=== PATIENT | male | born 1975 | race Two or more races ===

== ENCOUNTER 2022-09-10 13:37 | Outpatient (REF) | payer MEDICAID, SELFPAY ==
--- NOTE | ~2022-09-10 | MR_ITS ---
EXAMINATION: MR LUMBAR SPINE WITHOUT CONTRAST CLINICAL INFORMATION: 47-year-old with low back pain and 8 years of pain radiating down the right side. COMPARISON: None TECHNIQUE: MRI of the lumbar spine was obtained using routine sequences without contrast. FINDINGS: CORONAL ALIGNMENT: Normal. SAGITTAL ALIGNMENT: Normal. LUMBOSACRAL JUNCTION: Transitional lumbosacral anatomy with lowest lumbar-like segment labeled as S1, which appears partially lumbarized with a transitional S1-S2 intervertebral disc. VERTEBRAL BODIES: Vertebral body heights are well maintained. DISC SPACES AND ENDPLATES: The intervertebral disc space heights are well maintained. Mild degrees of disc desiccation are noted between L2-L3 and L5-S1 inclusive. Mild paravertebral spondylosis at L4-L5 and L5-S1. Tiny Schmorl's node along the inferior endplate of L4 noted. SPINAL CANAL: No abnormal developmental findings. BONE MARROW: Bone marrow edema is noted in the left L5 and S1 pedicles, with subchondral marrow edema on both sides of the left L5-S1 facet joint, likely reactive secondary to facet arthropathy. Cannot exclude stress reactions in the left L5 and S1 pedicles. Minor marrow edema in the right L5 pedicle as well which is nonspecific. There is marrow edema within the L5 transverse process as well which is suggestive of a stress reaction. No suspicious marrow-replacing process. Mild marrow edema noted in the pars interarticularis bilaterally at L5 which could also be reflective of stress reactions. CONUS MEDULLARIS: Terminates at L2. Morphology and signal is normal. INTRADURAL NERVE ROOTS: Within normal limits. L5-S1: Diffuse disc bulging is noted with mild right lateral annular fissuring, with slight flattening of the ventral dural sac. There is moderate left-sided and [id number] right-sided facet arthropathy, with bilateral facet joint effusions and probable reactive inflammatory changes at the left facet joint with some adjacent periarticular soft tissue edema and a small synovial cyst along the posterior margin of the left facet joint. No significant spinal canal stenosis. There is moderate bilateral neural foraminal stenosis, with disc bulging abutting the exiting L5 nerve roots bilaterally. L4-L5: Disc bulging is noted with a superimposed right-sided foraminal/extraforaminal disc herniation impinging on the exiting right L4 nerve root. Disc bulging also impinges on the exiting left L4 nerve root. Mild facet arthrosis is noted bilaterally without significant canal stenosis. [id number] right and moderate left-sided neural foraminal stenosis noted. L3-L4: Small extraforaminal/foraminal disc protrusion noted on the left without neural impingement. Mild ligamentum flavum thickening noted without significant canal stenosis. Minor foraminal narrowing noted on the left. L2-L3: Normal disc contour. No facet arthrosis, canal or neural foraminal stenosis. L1-L2: Normal disc contour. No facet arthrosis, canal or neural foraminal stenosis. PARASPINAL/RETROPERITONEAL: The paravertebral soft tissues appear grossly unremarkable. MR/MR lumbar spine wo con IMPRESSION: 1. Disc bulging at L5-S1 with annular fissuring on the right, with bilateral facet arthropathy and moderate bilateral neural foraminal stenosis with impingement on the exiting L5 nerve roots bilaterally. 2. Disc bulging at L4-L5 and right-sided foraminal/extraforaminal disc herniation at this level with mild facet arthrosis, with [id number] right and moderate left-sided neural foraminal stenosis, with impingement on the L4 nerve roots, right more than left. 3. Marrow edema in the posterior elements of L5, as discussed above and within the left S1 pedicle and L5 spinous process which may reflect stress reactions. Active inflammatory changes at the left L5-S1 facet joint are also suspected.
== END 2022-09-10 13:38 | disposition home or self-care (01) ==
LOC: HO.MRI 13:37
PROVIDERS: PCP Internal Medicine; Visit Provider General Practice
DX: M62.830 Muscle spasm of back (principal)
CPT/HCPCS: 72148

== ENCOUNTER 2024-02-23 09:53 | Outpatient (REF) | payer MEDICAID, SELFPAY ==
[2024-02-23 10:58] LABS: MANUAL DIFF FLAG NO
[2024-02-23 11:17] LABS: Basophils Absolute Auto 0.1 X10*3/uL (0.0-0.2); Basophils Percent Auto 0.4 % (0-2); Eosinophils Percent Auto 0.2 % (0-4); Hematocrit 44.6 % (42.0-52.0); Hemoglobin 14.4 g/dl (14.0-18.0); Imm Gran Abs Auto 0.05 X10*3/uL (0.00-0.03); Imm Gran Pct Auto 0.4 % (0.0-0.4); Lymphocytes Percent Auto 8.3 % (20-40); Mean Corpuscular HGB Conc 32.3 g/dl (31.0-36.0); Mean Corpuscular Hemoglobin 32.1 pg (27.0-33.0); Mean Corpuscular Volume 99.6 fL (80.0-98.0); Mean Platelet Volume 9.7 fL (9.4-12.4); Neutrophils Absolute Auto 9.9 x10*3/uL (2.0-8.3); Neutrophils Percent Auto 82.7 % (45-73); Platelet Count 443 X10*3/uL (160-400); Red Blood Count 4.48 X10*6/uL (4.60-5.80); Red Cell Distribution Width 12.2 % (11.0-16.0)
[2024-02-23 11:39] LABS: Alanine Aminotransferase 21 U/L (0-40); Alkaline Phosphatase 65 U/L (39-117); Anion Gap 12 (12-20); Aspartate Amino Transferase 20 U/L (5-37); Bilirubin Direct 0.2 mg/dL (0.0-0.5); Bilirubin Total 0.4 mg/dL (0.0-1.0); Blood Urea Nitrogen 10 mg/dL (9-16); Calcium 9.8 mg/dL (8.4-10.2); Carbon Dioxide 29 mmol/L (22-29); Chloride 103 mmol/L (96-108); Cholesterol 136 mg/dL (<200); Estimated Glomerular Filt Rate > 60; Glucose Random 128 mg/dL (60-115); HDL Cholesterol 60 mg/dL (>40); LDL Cholesterol Calculated 67 mg/dL (<100); Potassium 4.6 mmol/L (3.3-5.1); Sodium 139 mmol/L (135-145); Total Protein 7.9 g/dL (6.5-8.0); Triglycerides 49 mg/dL (<150)
[2024-02-23 11:56] LABS: Estimated Average Glucose 114 mg/dL; Hemoglobin A1c % 5.6 % (<6.0)
[2024-02-23 12:08] LABS: TSH reflex Free T4 1.28 uIU/mL (0.32-4.0); Vitamin D 25-OH Total 19.5 ng/mL (>30)
[2024-02-23 12:33] LABS: Reflex LDLD? No
[2024-02-23 15:05] LABS: HIV AB/AG Nonreactive (Nonreactive); HIV Num 1 0.07 S/CO (0.00-0.99); ~Hepatitis C Antibody Nonreactive (Nonreactive)
== END 2024-02-23 09:54 | disposition home or self-care (01) ==
LOC: HO.HHCL 09:53
PROVIDERS: Visit Provider Internal Medicine
DX: I10 Essential (primary) hypertension (principal); E11.9 Type 2 diabetes mellitus without complications; Z79.4 Long term (current) use of insulin; F39 Unspecified mood [affective] disorder
CPT/HCPCS: 36415; 80053; 80061; 82248; 82306; 83036; 84443; 85025; 86803; 87389

== ENCOUNTER 2025-04-25 09:14 | Outpatient (AMB) | payer MEDICAID, SELFPAY ==
--- NOTE | 2025-04-25 09:17 | A.OFFVIS_ITS ---
Intake Visit Reasons: hematoma (R) thigh Intake Note: Patient is seen in office for evaluation of a hematoma of the right thigh. Pt c[place]o: [place] and landed side ways about 2 months ago, at the time had a large hematoma, currently is resolved however is still painful when sleepin on it [employer] Required: No Accompanied by: Self / Same As Patient Allergies No Known Allergies Allergy (Unverified 04/25/25 09:24) Medication List - Last Reconciled 04/25/25 by Malikc Hay MD acetaminophen 500 mg PO Q6H PRN aspirin 1 tab PO DAILY atorvastatin (Lipitor) 40 mg PO BEDTIME cholecalciferol (vitamin D3) 50 mcg PO DAILY diclofenac sodium 1% 2 grams topical QID ibuprofen 600 mg PO Q6H PRN lisinopril 20 mg PO QAM quetiapine 300 mg PO BEDTIME HPI Comments Details: 50-year-old male patient presenting for evaluation of a right upper thigh hematoma. He reports falling in the park approximately 2 months ago landing on his right hip. He subsequently developed a large hematoma which was quite painful at the time. Since this time he did note ecchymosis extending down his leg which has now resolved. The original lump has decreased significantly. He occasionally has some discomfort when laying on his right side but generally feels much improved. He is able to ambulate without any difficulties. [facility] Surgical History History of amputation of right thumb Social History Alcohol intake: current Patient Tobacco Use Status: Current everyday Tobacco user Review of Systems Const All systems reviewed & are unremarkable except as noted in HPI and below Physical Exam Const General: cooperative and no acute distress Nutritional Appearance: well nourished Orientation/consciousness: patient oriented x3 Limitations: no limitations HEENT Head: Yes normocephalic and Yes atraumatic Ears: hearing grossly normal bilaterally Resp Effort & Inspection: normal respiratory effort, no audible wheezes, no cough and no respiratory distress Cardio Jugular venous distension: no JVD GI Inspection: Yes normal to inspection Skin Other: Warm, dry, no rash Neuro General: patient oriented x3 Extrem Other: Right lateral upper thigh with no palpable mass, skin change, tenderness noted. Normal range of motion. Ambulation is normal as well without apparent weakness. General: Yes no clubbing, cyanosis or edema Upper/lower leg/hip images: 2 1. Site of prior hematoma right upper lateral thigh Assessment & Plan Assessment & Plan (1) Hematoma: Code(s): T14.8XXA - Other injury of unspecified body region, initial encounter Category: Medical Plan 50-year-old male patient presenting for follow-up exam regarding a hematoma of the right lateral thigh. This occurred approximately 2 months ago after a fall. For the most part his symptoms have resolved and he has only minimal tenderness when laying on the right side. Examination reveals no definite residual hematoma at the site of injury. Muscle strength is normal as well. He should follow up as needed. Coding Level of Care Code New Pt Level 4 (02783) Diagnoses Hematoma T14.8XXA
--- OUTSIDE RECORDS SUMMARY | 2025-04-25 10:08 | XMS_ITS | Clinical Summary ---
Author Organization [employer] Address [address] [place] [address] [address] [place] [address] Care Team Providers Care Traffic Rate Computer Name Role Phone Sammi Wolf MD Primary Care Provide r [facility] Unavailable Unavailable Allergies No known active allergies Medications * This document contains information received from the source organization and may not represent a complete record from that organization. Blood Pressure kit Active Lancets 28G misc Act eusebia cholecalciferol (Vitamin D-3) 50 MCG (1999) capsuleIndication s:Vitamin D insufficiency Take 1 capsule (50 mcg) by mouth in the morning. 90 capsule 1 08/13/20 22 Active Mapap 500 MG capsuleIndication s:Lumbar paraspinal muscle spasm TAKE 2 CAPSULES BY MOUTH EVERY 6 HOURS NEEDED FOR MILD PAIN 90 capsule 1 02/18/20 23 Active Diclofenac Sodium 1 % gelIndications:Dania mbar paraspinal muscle spasm APPLY 1 INCH TOPICALLY TWICE DAILY IN THE MORNING AND AT BEDTIME NEEDED FOR PAIN 100 g 1 03/27/20 23 Active UltiCare Mini Pen [place] 31G X 6 MM [facility] USE DAILY FOR INSULIN INJECTION 100 each 4 05/05/20 23 Active Jardiance 25 MGIndications:Typ e 2 diabetes mellitus treated with insulin (CMS/HCC) TAKE 1 TABLET BY MOUTH EVERY MORNING 90 tablet 1 05/27/20 23 Active metFORMIN XR (Glucophage-XR) 500 MG 24 hr tabletIndications :Type 2 diabetes mellitus without complication, with long-term current use of insulin (CMS/HCC) TAKE 2 TABLETS BY MOUTH TWICE DAILY IN THE MORNING AND IN THE EVENING WITH MEALS 180 tablet 1 09/22/19 24 Active QUEtiapine (SEROquel) 300 MG tablet Take 1 tablet (300 mg) by mouth at bedtime. 90 tablet 3 01/21/20 24 Active insulin glargine (Lantus SoloStar) 100 UNIT/ML penIndications:Ty pe 2 diabetes mellitus treated with insulin ([facility]) INJECT 35 UNITS SUBCUTANEOUSLY EVERY EVENING 15 mL 1 02/08/20 24 Active sildenafil (Viagra) 25 MG tabletIndications :Erectile dysfunction, unspecified erectile dysfunction type Take 1 tablet (25 mg) by mouth if needed each day for erectile dysfunction. 10 tablet 2 02/23/20 24 Active atorvastatin (Lipitor) 40 MG tablet TAKE 1 TABLET BY MOUTH EVERY DAY AT BEDTIME 90 tablet 3 05/27/20 24 Active lisinopril 20 MG tabletIndications :Primary hypertension TAKE 1 TABLET BY MOUTH EVERY DAY IN THE MORNING 90 tablet 3 12/16/19 25 Active Aspirin Low Dose 81 MG chewable tabletIndications :Type 2 diabetes mellitus without complication, with long-term current use of insulin ([facility]) CHEW AND SWALLOW 1 TABLET BY MOUTH EVERY DAY 90 tablet 3 12/16/19 25 Active Active Problems Problem Noted Date Diagnosed Date Erectile dysfunction 02/23/2024 Assessment & Plan (02/23/2024 12:34 PM EDT): Counseling done I will start him on sildenafil 25mg Right elbow pain 01/01/2023 Assessment & Plan (01/01/2023 3:04 PM EDT): Continue to follow with pain management Chronic bilateral low back pain with bilateral s ciatica 01/01/2023 Depression with anxiety 01/01/2023 Assessment & Plan (02/23/2024 12:35 PM EDT): C/w psychiatrist and therapist Assessment & Plan (03/06/2023 1:53 PM EDT): Assessment: Patient with lack of motivation, isolation, depressed mood, trouble falling sleep, poor appetite, feeling tired/low energy, feeling useless, difficulties concentrating, and SI 1-2 times a week (thoughts of hanging himself to stop the irritability). He denies HI. He also reports feeling anxious, not being able to stop constant worrying, restlessness, irritability and feeling as something awful might happen. Presentation in the context of his finger being amputated two years ago as well as his uncontrolled medical issues (e.g. diabetes, high blood pressure). Patient will benefit from an OP therapy referral. Patient is already connected with [facility] for psychopharmacology. At this time Radha Nj meets criteria for Visit Diagnoses: Problem List Items Addressed This Visit Other Depression with anxiety Patient ready to address current needs Yes Strengths include openness to additional help PLAN: 1. Follow up with [facility]: Not recommended for follow-up 2. Patient goal is to decrease depressive and anxiety symptoms. 3. Behavioral Recommendations a. Patient will begin taking medication as prescribed b. Patient will engage in OP therapy once it is established c. Patient will utilize coping techniques learned d. Patient may request to speak with a [facility] during next PCP visit, if needed Colon cancer screening 01/01/2023 Mood disorder 10/06/2022 Assessment & Plan (01/21/2024 3:17 PM EDT): Presented with mood swings: Some days down and depressed, other days with excessive energy and can't sit still. Irritability. Mood congruent hallucinations: name called, voices talking; lights flashing. He is doing much better with improved sleep; hallucinations controlled. He will continue Seroquel 300 mg at bedtime. Follow up with therapist as usual. Since this provider will be retiring, patient will be referred to new psychiatric prescriber. Explained to the patient that new provider works with [facility], so calls would be coming from there. He gives verbal permission to share information with new provider. Any issues or concerns, he should contact [facility]. All his questions were answered, and I have wished him well. He agrees with the plan. Assessment & Plan (11/25/2023 9:59 AM EDT): Patient still struggles with mood disorder but is being follow closely by therapist and psychiatrist Assessment & Plan (11/17/2023 10:36 AM EDT): Presented with mood swings: Some days down and depressed, other days with excessive energy and can't sit still. Irritability. Mood congruent hallucinations: name called, voices talking; lights flashing. He is doing better with improved sleep; hallucinations improved but not extinguished. He was supposed to increase to Seroquel 150 mg at bedtime, but has increased to Seroquel 200 mg at bedtime. At this time will increase to Seroquel 300 mg at bedtime. Cautioned about possible daytime sedation. Praised for decreasing MJ consumption. He has started outpatient counseling. Today 11/17/2023 pt was advised that this provider would be retiring and suggest he speak with therapist about possible referral to agency psychiatric prescriber. Meanwhile F/U with me in 2 months. He agrees with the plan. F/U with me in 2 months. he agrees with the plan. Assessment & Plan (05/04/2023 9:33 AM EDT): Presented with mood swings: Some days down and depressed, other days with excessive energy and can't sit still. Irritability. Mood congruent hallucinations: Hears name called, voices talking; Sees lights flashing. Doing better than baseline: improved sleep; hallucinations improved but not extinguished. Has not increased to Seroquel 150 mg at bedtime as advised, will do that now. Recommend decreasing MJ consumption. I will make a new referral for counseling. F/U with me in 2 months. he agrees with the plan. Assessment & Plan (03/02/2023 9:40 AM EDT): Presented with mood swings: Some days down and depressed, other days with excessive energy and can't sit still. Irritability. Mood congruent hallucinations: Hears name called, voices talking; Sees lights flashing. Doing better: improved sleep; hallucinations improved but not extinguished. Will increase to Seroquel 150 mg at bedtime. Will request [facility] Clinician contact pt for f/u. F/U with me in 2 months. he agrees with the plan. Assessment & Plan (01/01/2023 3:02 PM EDT): Patient follow by [facility] currently does not have a therapist Assessment & Plan (10/06/2022 11:55 AM EST): Presented with mood swings: Some days down and depressed, other days with excessive energy and can't sit still. Irritability. Mood congruent hallucinations: Hears name called, voices talking; Sees lights flashing. Sleeping better. Hallucinations improved but not extinguished. Mood is still not stable. Will increase to Seroquel 50 mg 1.5 tab at bedtime for a few weeks, then may increase to 2 tabs at bedtime. F/U with me in 6 weeks. he agrees with the plan. Lumbar paraspinal muscle spasm 07/28/2022 Assessment & Plan (07/28/2022 3:14 PM EST): Counseled to apply heat to affected area and diclofenac gel bid x 2w Take tylenol 500mg tid x 2w then prn only Refer to PT Recommended acupuncture Order Xray of spine and fu w PCP in 3m He declined Influenza vax today. Pain in finger 07/25/2022 Hypertensive disorder 01/30/2017 Assessment & Plan (02/23/2024 12:33 PM EDT): - Aerobic exercise to reduce BP. Initial goal of 30 min walk 3-5x/week. Increase as tolerated. - low-sodium diet (goal: <2g/day) and heart healthy diet such as DASH to reduce BP and prevent ASCVD. - Home BP monitoring 1-2 x day with goal of <140/90. - Seek immediate medical attention for chest pain, palpitations, SOB, syncope, or sudden changes in mental status. - Do not change or discontinue current prescriptions without first consulting health care provider Assessment & Plan (11/25/2023 9:58 AM EDT): - Aerobic exercise to reduce BP. Initial goal of 30 min walk 3-5x/week. Increase as tolerated. - low-sodium diet (goal: <2g/day) and heart healthy diet such as DASH to reduce BP and prevent ASCVD. - Home BP monitoring 1-2 x day with goal of <140/90. - Seek immediate medical attention for chest pain, palpitations, SOB, syncope, or sudden changes in mental status. - Do not change or discontinue current prescriptions without first consulting health care provider Assessment & Plan (01/01/2023 3:04 PM EDT): - Aerobic exercise to reduce BP. Initial goal of 30 min walk 3-5x/week. Increase as tolerated. - low-sodium diet (goal: <2g/day) and heart healthy diet such as DASH to reduce BP and prevent ASCVD. - Home BP monitoring 1-2 x day with goal of <140/90. - Seek immediate medical attention for chest pain, palpitations, SOB, syncope, or sudden changes in mental status. - Do not change or discontinue current prescriptions without first consulting health care provider Resolved Problems Problem Noted Date Diagnosed Date Resolved Date Hordeolum externum of upper eyelid 07/25/2022 06/20/2024 Mixed anxiety and depressive disorder 07/25/2022 10/06/2022 Type 2 diabetes mellitus without complication 10/29/19 13 06/20/2024 Assessment & Plan (02/23/2024 12:35 PM EDT): Diabetes is: controlled - Lab Results Component Value Date HGBA1C 5.6 02/23/2024 HGBA1C 5.7 11/25/2023 HGBA1C 6.1 (A) 01/01/2023 - Lab Results Component Value Date MICROALBUR 52.3 08/21/2021 CREATININE 0.83 02/23/2024 -Changes: none - Diabetic eye exam:up to date - Diabetic foot exam:pending - Continue lifestyle modifications - Continue current medications - Follow up: 3 months Assessment & Plan (11/25/2023 9:59 AM EDT): Diabetes is: controlled - Lab Results Component Value Date HGBA1C 5.7 11/25/2023 HGBA1C 6.1 (A) 01/01/2023 HGBA1C 8.2 (H) 08/21/2021 - Lab Results Component Value Date MICROALBUR 52.3 08/21/2021 -Changes: I will go down on his lantus to 10 U at bed time plan is to discontinue if A1c continues to be this low - Diabetic eye exam:referral today - Diabetic foot exam:pending - Continue lifestyle modifications - Continue current medications - Follow up: 3 months Assessment & Plan (01/01/2023 3:00 PM EDT): - Lab Results Component Value Date HGBA1C 6.1 (A) 01/01/2023 HGBA1C 8.2 (H) 08/21/2021 - Lab Results Component Value Date MICROALBUR 52.3 08/21/2021 - Diabetic eye exam: - Diabetic foot exam: - Continue lifestyle modifications - Continue current medications - Encounters Date Type Department Care Team Description 03/21/[address] [phone] Sammi Wolf MD Appointment Request 03/09/[address] [phone] Sammi Wolf MD requesting call back 02/28/2025 3:45 PM EDT Office Visit [address] [phone] Name, MD Catracho Hematoma of right thigh, initial encounter (Primary Dx) 02/28/2025 Travel 02/28/[address] [phone] Sammi Wolf MD Nurse Triage from Last 3 Months Immunizations Immunization Administration Dates Next Due Influenza injectable quadriv alent preservative free 08/21/2021 Influenza, IIV3, injectable 07/12/2010 Pfizer Covid-19 Vaccine 12+ 08/21/2021,,01/01/2021 Pneumococcal Polysaccharide PPSV23 09/02/2000 TD (adult), 2 Lf tetanus tox oid, preservative free, adsorbed 06/24/2003 Tdap 08/21/2021 Social History Tobacco Use Types Packs/Day Years Used Date Smoking Tobacco: Every Day Cigarettes Passive Smoke Exposure: Current Smokeless Tobacco: Never Tobacco Cessation:Ready to Q uit: Not Asked; Counseling Given: Not Answered Alcohol Use Standard Drinks/Week Comments Yes 0 (1 standard drink = 0.6 oz pur e alcohol) Socially Depression Answer Date Recorded Patient Health Questionnaire-9 Score 7 01/21/2024 Patient Health Questionnaire-9 Score 7 01/21/2024 Last PHQ-9: Questionnaire Data Not on file 0 01/21/2024 Housing Stability Answer Date Recorded What is your housing situation today? I do not have housing (Staying with others, in a hotel, in a long-term, living outside on the street, on a beach, in a car, or in a park 02/12/[address] you li ve. Do you have problems with any of the following? None of the above 02/12/2024 Food Insecurity Answer Date Recorded Within the past 12 months, y ou worried that your food would run out before you got money to buy more: Never True 02/12/2024 Within the past 12 months,th e food you bought just didn't last and you didn't have enough money to get more: Never True Transportation Answer Date Recorded In the past 12 months, has l ack of transportation kept you from medical appts, meetings, work or from getting things needed for daily living? Yes, it has kept me from non-medical meetings, work, or getting things that I need 02/12/2024 Utilities Answer Date Recorded In the past 12 months, has t he electric, gas, oil or water company threatened to shut off services in your home? No 02/12/2024 Depression Answer Date Recorded Patient Health Questionnaire-2 Score 2 01/21/2024 Internet Access Answer Date Recorded Internet Access Q1 Yes 04/25/2024 Internet Access Q2 Not on file 04/25/2024 Sex and Gender Information Value Date Recorded Sex Assigned at Male 06/23/2022 10:16 AM EDT Legal Sex Male 10:16 AM EDT Gender Identity Choose not to disclose 10:16 AM EDT Sexual Orientation Choose not to disclose 2021 10:16 AM EDT Last Filed Vital Signs Vital Sign Reading Time Taken Comments Blood Pressure 118/72 02/28/2025 3:42 PM EDT Pulse 104 02/28/2025 3:42 PM EDT Temperature 36.7 C (98 F) 02/28/2025 3:42 PM EDT Respiratory Rate 18 02/28/2025 3:42 PM EDT Oxygen Saturation 96% 02/28/2025 3:42 PM EDT Inhaled Oxygen Concentration - - Weight 75.6 kg (166 lb 9.6 oz) 02/28/2025 3:42 P M EDT Height 180.3 cm (5' 11 ) 02/28/2025 3:42 PM EDT Body Mass Index 23.24 02/28/2025 3:42 PM EDT Plan of Treatment Upcoming Encounters Date Type Department Care Team (Late st Contact Info) Description 05/23/2025 10:45 AM EDT Office Visit [facility] [address] [place] [address] Sammi Wolf MD [address] [place] [address] 07/18/2025 10:00 AM EST Office Visit [facility] [address] [place], [place] [phone] Karen Boles, OD [address] [place], [place] [phone] Health Maintenance Due Date Last Done Comments CT Colonography 1976 Colonoscopy 1976 FIT 1976 FOBT 1976 Sigmoidoscopy 1976 Disability Screening 1976 Diabetes: Foot Exam 1986 Alcohol/Substance Use Screening 1988 Family Planning (PISQ) 1991 Hepatitis B Vaccines (1 of 3 - 19+ 3-dose series) 1995 Pneumococcal Vaccine: Pediatrics (0 to 5 Years) and At-Risk Patients (6 to 49) Years (2 of 2 - PCV) 09/02/2001 09/02/2000 Diabetes: Urine Protein Screening 08/21/2022 08/21/2021 Diabetes: Hemoglobin A1C 08/25/20242 024, 11/25/2023, 01/01/2023, Additional history exists Depression Screening 01/20/2025 01/21/2024, 01/21/20 24 SDOH Screening 02/11/2025 02/12/2024 Lipid Panel 02/22/2025 02/23/2024, 08/21/2021 COVID-19 Vaccine ( season) 2025 08/21/2021, 01/23/2021, 01/01/2021 Influenza Vaccine (#1) 2025 08/21/2021, 2009 Eye Exam 06/20/2025 06/20/2024, 1003/2024, 06/20/2024, Additional history exists Tobacco Screening 02/28/2026 02/28/2025 Zoster Vaccines (1 of 2) 2026 Colorectal Cancer Screening 12/23/2026 FIT DNA/Cologuard 12/23/2026 12/24/2023 DTaP/Tdap/Td Vaccines (2 - Td or Tdap) 08/21/2031 08/21/2021, 06/24/2003 RSV Patients and Patients Aged 60 years or older (1 - 1-dose 75+ series) 2051 HIV Screening Completed 02/23/2024 Hepatitis C Screening Completed 02/23/2024 HIB Vaccines Aged Out No longer eligi ble based on patient's age to complete this topic HPV Vaccines Aged Out No longer eligi ble based on patient's age to complete this topic Hepatitis A Vaccines Aged Out No long er eligible based on patient's age to complete this topic IPV Vaccines Aged Out No longer eligi ble based on patient's age to complete this topic Meningococcal B Vaccine Aged Out No l onger eligible based on patient's age to complete this topic Meningococcal Vaccine Aged Out No jamil lucita eligible based on patient's age to complete this topic RSV under 20 months Aged Out No longe r eligible based on patient's age to complete this topic Rotavirus Vaccines Aged Out No longer eligible based on patient's age to complete this topic Procedures Procedure Name Priority Date/Time Associated Diagnosis Comments HEPATITIS C AB W/REFL TO HCV RNA, QN, PCR Routine 02/23/2024 9:57 AM EDT Primary hypertension HIV 1/2 ANTIGEN/ANTIBODY, FOURTH GENERATION W/RFL Routine 02/23/2024 9:57 AM EDT Primary hypertension HEMOGLOBIN A1C Routine 02/23/2024 9:57 AM EDT Type 2 diabetes mellitus without complication, with long-term current use of insulin ([facility]/HCC) LIPID PANEL, STANDARD Routine 02/23/2024 9:57 AM EDT Primary hypertension LAB COLOGUARD COLON CANCER SCREEN Routine 12/24/2023 8:20 AM EDT Colon cancer screening ALBUMIN, RANDOM URINE W/CREATININE Routine 08/21/2021 3:25 PM EST from Last 3 Months or Most Recently Relevant to Health Maintenance Results * Hepatitis C Antibody with Reflex to HCV, RNA, Quantitative, Real-Time PCR (02/23/2024 9:57 AM EDT) Pathologist [facility] Hepatitis C Antibody Nonreactive Nonreactive [facility] Comment:Antibodies to HCV no t detected; does not exclude early acuteHCV infection. Blood Venous blood specimen / Unknown 02/23/2024 9:57 AM EDT 02/23/2024 10:58 AM EDT Sammi Sheffield MD LAB BLOOD ORDERABLES Final Result [facility] [address] [place] [phone] * HIV-1/2 Antigen and Antibodies, Fourth Generation, with Reflexes (02/23/2024 9:57 AM EDT) [facility] HIV AB/AG Nonreactive Nonreactive [facility] Comment:HIV-1 p24 Ag and/or HIV-1/HIV-2 Ab not detected.A test result that is nonreactive does not exclude thepossibility of exposure to or infection with HIV-1 and/orHIV-2. Nonreactive results in this assay for individualswith prior exposure to HIV-1 and/or HIV-2 may be due toantigen and antibody levels that are below the limit ofdetection of this assay.The [employer]sell HIV Ag/Ab Combo assay result andsupplemental assay results should be interpreted inconjunction with the patient's clinical presentation,history and other laboratory results. If the results areinconsistent with clinical evidence, additional testing issuggested to confirm the result. Blood Venous blood specimen / Unknown 02/23/2024 9:57 AM EDT 02/23/2024 10:58 AM EDT us Sammi Sheffield MD LAB BLOOD ORDERABLES Final Result Performing Organization Address City/Special Care [facility]/ZIP Co de Phone Number [facility] [address] [place] [phone] * Hemoglobin A1c (02/23/2024 9:57 AM EDT) Hemoglobin A1c 5.6 <6.0 % [facility] Comment:Hemoglobin A1C Refer ence Range Adults: 4.8 - 6.0 % Non diabetic: < 6.0 % Goal: < 7.0 %Additional Action Suggested: > 8.0 %Note: Hemoglobin A1c results are invalid for patients with abnormal amounts of HbF. Blood transfusions may impact the HbA1c concentration in the patient sample. Estimated Average Glucose 114 mg/dL [facility] Comment:eAG = Estimated ave rage glucose which is %A1C expressed asaverage glucose, using the formula of the I6S-YtmbvroWaezccn Glucose study (ADAG), Diabetes Care, Vol.31,#8,Mar. 2007 Blood Venous blood specimen / Unknown 02/23/2024 9:57 AM EDT 02/23/2024 10:56 AM EDT us Sammi Sheffield MD LAB BLOOD ORDERABLES Final Result Performing Organization Address City/[facility] Care [facility]/ZIP Co de Phone Number [facility] [address] [place] [phone] * Lipid Panel, Standard (02/23/2024 9:57 AM EDT) Triglycerides 49 <150 mg/dL [facility] Comment:Desirable Triglyceri de: less than 150 mg/dLBorderline High Triglyceride 150-199 mg/dLHigh Triglyceride: 200-499 mg/dLVery High Triglyceride: greater than or equal to 5OO mg/dL Cholesterol 136 <200 mg/dL [facility] Comment:Desirable Cholestero l: less than 200 mg/dLBorderline High Cholesterol: 200-239 mg/dLHigh Cholesterol: greater than 239 mg/dL LDL Cholesterol Calculated 67 <100 mg/dL [facility] Comment:Desirable LDL: less than 100 mg/dLNear Optimal/Above Optimal LDL: 110- 129 mg/dLBorderline High LDL: 130-159 mg/dLHigh LDL: 160-189 mg/dLVery High LDL: greater than or equal to 190 mg/dL HDL Cholesterol 60 >40 mg/dL [facility] Comment:Desirable HDL: great er than 40 mg/dL Note: This HDL assay may give artificially low results in patients with liver disease. Blood Venous blood specimen / Unknown 02/23/2024 9:57 AM EDT 02/23/2024 10:58 AM EDT Sammi Sheffield MD LAB BLOOD ORDERABLES Final Result [facility] [address] [place] [phone] * Cologuard?? colon cancer screening (12/24/2023 8:20 AM EDT) Cologuard Result Negative Negative 12/31/19 5:32 PM EDT [facility] (CLIA #:[id number]) Comment: NEGATIVE TEST RESULT. A negative Cologuard result indicates a low likelihood that a colorectal cancer (CRC) or advanced adenoma (adenomatous polyps with more advanced pre-malignant features) is present. The chance that a person with a negative Cologuard test has a colorectal cancer is less than 1 in 1500 (negative predictive value >99.9%) or has an advanced adenoma is less than 5.3% (negative predictive value 94.7%). These data are based on a prospective cross-sectional study of 10,000 individuals at average risk for colorectal cancer who were screened with both Cologuard and colonoscopy. (Annalise Lord al, N Engl J Med 2014;370(14):7658-2084) The normal value (reference range) for this assay is negative. COLOGUARD RE-SCREENING RECOMMENDATION: Periodic colorectal cancer screening is an important part of preventive healthcare for asymptomatic individuals at average risk for colorectal cancer. Following a negative Cologuard result, the [place] [employer] and U.S. Multi-Society Task Force screening guidelines recommend a Cologuard re-screening interval of 3 years. References: [place] [employer] Guideline for Colorectal Cancer Screening: https://www.cancer.org/cancer/ltyih-qqueve-vknktu/uhmnercrl-paimzjwih-fflpkoo/ac s-rec ommendations.html.; Brett DK, Homero CR, Ovi AuK, Colorectal Cancer Screening: Recommendations for Physicians and Patients from the U.S. Multi-Society Task Force on Colorectal Cancer Screening , Am J Gastroenterology 2017; 112:6545-6955. TEST DESCRIPTION: Composite algorithmic analysis of stool DNA-biomarkers with hemoglobin immunoassay. Quantitative values of individual biomarkers are not reportable and are not associated with individual biomarker result reference ranges. Cologuard is intended for colorectal cancer screening of adults of either sex, 45 years or older, who are at average-risk for colorectal cancer (CRC). Cologuard has been approved for use by the U.S. FDA. The performance of Cologuard was established in a cross sectional study of average-risk adults aged 50-84. Cologuard performance in patients ages 45 to 49 years was estimated by sub-group analysis of near-age groups. Colonoscopies performed for a positive result may find as the most clinically significant lesion: colorectal cancer [4.0%], advanced adenoma (including sessile serrated polyps greater than or equal to 1cm diameter) [20%] or non- advanced adenoma [31%]; or no colorectal neoplasia [45%]. These estimates are derived from a prospective cross-sectional screening study of 10,000 individuals at average risk for colorectal cancer who were screened with both Cologuard and colonoscopy. (Annalise Lord al, N Engl J Med 2014;370(14):2296-2783.) Cologuard may produce a false negative or false positive result (no colorectal cancer or precancerous polyp present at colonoscopy follow up). A negative Cologuard test result does not guarantee the absence of CRC or advanced adenoma (pre-cancer). The current Cologuard screening interval is every 3 years. ([place] [employer] and U.S. Multi-Society Task Force). Cologuard performance data in a 10,000 patient pivotal study using colonoscopy as the reference method can be accessed at the following location: www.[employer].com/results. Additional description of the Cologuard test process, warnings and precautions can be found at www.[employer]MT [employer].com. Stool specimen (specimen) 12/24/2023 8:20 AM EDT 12/25/2023 2:46 PM EDT Sammi Sheffield MD LAB MOLECULAR DIAGNOS TICS ORDERABLES Final Result [facility] (CLIA #:[id number]) [place] [address] [place] [address], * (ABNORMAL) ALBUMIN, RANDOM URINE W/CREATININE (08/21/2021 3:25 PM EST) Microalbumin Urine 52.3 See Note: mg/dL [facility] Comment: Reference Range: Reference Range Not established Verified by repeat analysis. Microalb/Creat Ratio 556(H) <30 mcg/mg creat [facility] Comment: The ADA defines abnormalities in albumin excretion as follows: Albuminuria Category Result (mcg/mg creatinine) Normal to Mildly increased <30 Moderately increased 30-299 Severely increased > OR = 300 The ADA recommends that at least two of three specimens collected within a 3-6 month period be abnormal before considering a patient to be within a diagnostic category. Creatinine, Urine 94 20 - 320 mg/dL [facility] 08/21/2021 3:25 PM EST Sammi Sheffield MD LAB URINE ORDERABLES Final Result [facility] [address] from Last 3 Months or Most Recently Relevant to Health Maintenance Insurance C3 HSN PARTIAL Care Teams Traffic Rate Computer Relationship Specialty Start Date End Date Sammi Wolf MD [address] [place] [address] PCP - General Family Medicine 02/09/20 Paxton Mills FNP [address] [place] [address] Nurse Practitioner Family Medicine 07/13/23
--- OUTSIDE RECORDS SUMMARY | 2025-04-25 10:08 | XMS_ITS | Clinical Summary ---
Author Organization [facility] Address [address] [place] [phone] Phone Care Team Providers Care Medical Apparatus Model Maker Name Role Phone Sammi Wolf MD Primary Care Provide r Allergies No known active allergies Medications methocarbamoL (ROBAXIN) 750 mg tablet Take 1 tablet (750 mg total) by mouth 4 (four) times a day for 10 days. 40 each 08/04/2024 Active cyclobenzaprine (FLEXERIL) 10 mg tablet Take 1 tablet (10 mg total) by mouth 2 (two) times a day if needed for muscle spasms for up to 10 days. 20 tablet 10/19/2024 Active Medical History Medical History Date Comments Essential hypertension DX:Essent ial hypertension Diabetes mellitus type 2, co ntrolled, with complications ([facility]/HCC V24, CMS/HCC V28) DX:Diabetes mellitus type 2, controlled, with complications ([facility]) Social History Tobacco Use Types Packs/Day Years Used Date Smoking Tobacco: Every Day Smokeless Tobacco: Never Alcohol Use Standard Drinks/Week Comments Yes 0 (1 standard drink = 0.6 oz pur e alcohol) Sex and Gender Information Value Date Recorded Sex Assigned at Male 10/19/2024 9:48 AM EST Legal Sex Male 5:00 AM EST Gender Identity Male 10/19/2024 9:48 AM EST Sexual Orientation Straight 10/19/2024 9: 48 AM EST Obstetrics History Last Filed Vital Signs Vital Sign Reading Time Taken Comments Blood Pressure 130/70 10/19/2024 9:54 AM EST Pulse 95 10/19/2024 9:54 AM EST Temperature 36.7 C (98.1 F) 10/19/2024 9:54 AM EST Respiratory Rate 17 10/19/2024 9:54 AM EST Oxygen Saturation 98% 10/19/2024 9:54 AM EST Inhaled Oxygen Concentration - - Weight 81.6 kg (180 lb) 10/19/2024 9:54 AM EST Height 180.3 cm (5' 11 ) 10/19/2024 9:54 AM EST Body Mass Index 25.1 10/19/2024 9:54 AM EST Plan of Treatment Health Maintenance Due Date Last Done Comments Diabetes: Annual GFR (Glomerular Filtration Rate) 1976 Diabetes: Annual Foot Exam 1986 Diabetes: Annual Retina Eye Exam 1986 Hepatitis B Vaccines (1 of 3 - 19+ 3-dose series) 1995 Pneumococcal Vaccine: Pediatrics (0 to 5 Years) and At-Risk Patients (6 to 49 Years) (2 of 2 - PCV) 09/02/2001 09/02/2000 Social Influencers of Health Screening 07/27/2022 Diabetes: Annual Urine Albumin-Creatinine Ratio (uACR) 08/04/2024 Hypertension/CHF/CAD Annual BMP Blood Test 08/04/2024 Depression Screening 08/24/2024 Diabetes: Blood Sugar Contro l Test (HGBA1C) 08/25/2024 02/23/2024 COVID-19 Vaccine (2024-2 6 season) 2025 08/21/2021, 01/23/2021, 01/01/2021 Influenza Vaccine (#1) 2025 , 07/12/2010 Colorectal Cancer Screening: FIT-DNA (Cologuard) 12/23/2026 12/24/2023 Cholesterol Screening (Lipid Panel) 02/22/2029 02/23/2024 DTaP,Tdap,and Td Vaccines (3 - Td or Tdap) 08/21/2031 08/21/2021, 06/24/2003 HIV Screening Completed 02/23/2024 Hepatitis C Screening [...] on patient's age to complete this topic MMR Vaccines Aged Out No longer eligi ble based on patient's age to complete this topic Meningococcal ACWY Vaccine Aged Out N o longer eligible based on patient's age to complete this topic Meningococcal B Vaccine Aged Out No l onger eligible based on patient's age to complete this topic RSV Immunization Patients Under 20 months Aged Out No longer eligible b ased on patient's age to complete this topic Varicella Vaccines Aged Out No longer eligible based on patient's age to complete this topic Insurance [place] - [place] Advance Directives Documents on File Type Date Recorded 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
--- OUTSIDE RECORDS SUMMARY | 2025-04-25 10:08 | XMS_ITS | Encounter Summary ---
Author Organization [employer] Address [address] [place] [address] [address] [place] [address] Care Team Providers Care Baffle Mounter Name Role Phone Sammi Wolf MD Primary Care Provide r [place] Unavailable Unavailable Reason for Visit * Reason Comments Med Refill Encounter Details Date Type Department Care Team (Late Contact Info) Description 11/16/2022 Refill [facility] [address] [place] [address] Eliana Cook FNP [address] [place] [address] Type 2 diabetes mellitus treated with insulin ([facility]) Social History Tobacco Use Types Packs/Day Years Used Date Smoking Tobacco: Every Day Cigarettes Smokeless Tobacco: Never Alcohol Use Standard Drinks/Week Comments Yes 0 (1 standard drink = 0.6 oz pur e alcohol) Socially Sex and Gender Information Value Date Recorded Sex Assigned at Male 06/23/2022 10:16 AM EDT Legal Sex Male 10:16 AM EDT Gender Identity Choose not to disclose 10:16 AM EDT Sexual Orientation Choose not to disclose 2021 10:16 AM EDT documented as of this encounter Plan of Treatment Upcoming Encounters Date Type Department Care Team (Late Contact Info) Description 05/23/2025 10:45 AM EDT Office Visit [facility] MEDICINE [address] [place] [address] Sammi Wolf MD [address] [place] [address] 07/18/2025 10:00 AM EST Office Visit [facility] OPTOMETRY [address] [place], [place] [phone] Karen Boles OD [address] [place] [address] documented as of this encounter Visit Diagnoses Diagnosis Type 2 diabetes mellitus treated with insulin ([facility]) documented in this encounter Additional Health Concerns Assessment Noted Time PHQ-9 Depression Total Score: 11 023 9:55 AM EST documented as of this encounter Care Teams Baffle Mounter Relationship Specialty Start Date End Date Sammi Wolf MD [address] [place], [place] [phone] PCP - General Family Medicine 02/09/20 Paxton Mills FNP [address] [place] [address] Nurse Practitioner Family Medicine 07/13/23 documented as of this encounter
--- OUTSIDE RECORDS SUMMARY | 2025-04-25 10:08 | XMS_ITS | Encounter Summary ---
Author Organization [employer] Address [address] [place] [address] [address] [place] [address] Care Team Providers Care Financial Reporting Accountant Name Role Phone Sammi Wolf MD Primary Care Provide r Pa[place] Mills Unavailable Unavailable Encounter Details Date Type Department Care Team (Late st Contact Info) Description 08/28/2022 Orders Only [facility] MEDICINE [address] [place], [place] [phone] Angelica Martinez MD [address] [place], [place] [phone] Type 2 diabetes mellitus without complication, with long-term current use of insulin ([facility]) (Primary Dx) Social History Tobacco Use Types Packs/Day Years [...] not to disclose 2021 10:16 AM EDT COVID-19 Exposure Response Date Recorded In the last 10 days, have yo u been in contact with someone who was confirmed or suspected to have Coronavirus/COVID-19? No / Unsure 08/27/2022 3:22 PM EST documented as of this encounter Functional Status * Over the past 2 weeks, how often have you been bothered by any of the following problems? Question Answer Date of Assessment Author Feeling down, depressed, or hopeless Not at all 08/28/2022 2:22 PM EST Francy White [place] documented as of this encounter Miscellaneous Notes * Result Encounter Note - Angelica Martinez MD - 08/28/2022 2:51 PM EST Please let patient know his MRI showed multiple abnormalities-- can we have a phone visit to go over everything, as well as the treatment options that he has. Thank you! documented in this encounter Plan of Treatment Upcoming Encounters Date Type Department Care Team (Late st Contact Info) Description 05/23/2025 10:45 AM EDT Office Visit [facility] MEDICINE [address] [place] [address] Sammi Wolf MD [address] [place] [address] 07/18/2025 10:00 AM EST Office Visit [facility] OPTOMETRY [address] [place] [address] Tarka, Karen, OD [address] [place] [address] documented as of this encounter Procedures Procedure Name Priority Date/Time Associated Diagnosis Comments MR LUMBAR SPINE WO CONTRAST Routine 09/10/2022 2:20 PM EST documented in this encounter Results * MR Lumbar Spine w/o Contrast (09/10/2022 2:20 PM EST) Anatomical Region Laterality Modality Spine, L-spine Magnetic Resonan ce 09/10/2022 2:20 PM EST Narrative 09/15/2022 5:14 PM EST [facility] [address] [place] [id number] Magnetic Resonance Report Signed Patient: Zuhair Nj MR#: [id number] : 1975 Acct:[id number] Age/Sex: 47 / M ADM Date: 09/10/22 Loc: HO.MRI Attending Dr: Angelica Martinez MD Ordering Physician: Angelica Martinez Date of Service: 09/10/22 Procedure(s): MR lumbar spine wo con Accession Number(s): [id number] cc: Angelica Martinez EXAMINATION: MR LUMBAR SPINE WITHOUT CONTRAST CLINICAL INFORMATION: 47-year-old with low back pain and 8 years of pain radiating down the right side. COMPARISON: None TECHNIQUE: MRI of the lumbar spine was obtained using routine sequences without contrast. FINDINGS: CORONAL ALIGNMENT: Normal. SAGITTAL ALIGNMENT: Normal. LUMBOSACRAL JUNCTION: Transitional lumbosacral anatomy with lowest lumbar-like segment labeled as S1, which appears partially lumbarized with a transitional S1-S2 intervertebral disc. VERTEBRAL BODIES: Vertebral body heights are well maintained. DISC SPACES AND ENDPLATES: The intervertebral disc space heights are well maintained. Mild degrees of disc desiccation are noted between L2-L3 and L5-S1 inclusive. Mild paravertebral spondylosis at L4-L5 and L5-S1. Tiny Schmorl's node along the inferior endplate of L4 noted. SPINAL CANAL: No abnormal developmental findings. BONE MARROW: Bone marrow edema is noted in the left L5 and S1 pedicles, with subchondral marrow edema on both sides of the left L5-S1 facet joint, likely reactive secondary to facet arthropathy. Cannot exclude stress reactions in the left L5 and S1 pedicles. Minor marrow edema in the right L5 pedicle as well which is nonspecific. There is marrow edema within the L5 transverse process as well which is suggestive of a stress reaction. No suspicious marrow-replacing process. Mild marrow edema noted in the pars interarticularis bilaterally at L5 which could also be reflective of stress reactions. CONUS MEDULLARIS: Terminates at L2. Morphology and signal is normal. INTRADURAL NERVE ROOTS: Within normal limits. L5-S1: Diffuse disc bulging is noted with mild right lateral annular fissuring, with slight flattening of the ventral dural sac. There is moderate left-sided and wtms-vp-bjtxlfcb right-sided facet arthropathy, with bilateral facet joint effusions and probable reactive inflammatory changes at the left facet joint with some adjacent periarticular soft tissue edema and a small synovial cyst along the posterior margin of the left facet joint. No significant spinal canal stenosis. There is moderate bilateral neural foraminal stenosis, with disc bulging abutting the exiting L5 nerve roots bilaterally. L4-L5: Disc bulging is noted with a superimposed right-sided foraminal/extraforaminal disc herniation impinging on the exiting right L4 nerve root. Disc bulging also impinges on the exiting left L4 nerve root. Mild facet arthrosis is noted bilaterally without significant canal stenosis. Nmhimkek-wf-pziuyr right and moderate left-sided neural foraminal stenosis noted. L3-L4: Small extraforaminal/foraminal disc protrusion noted on the left without neural impingement. Mild ligamentum flavum thickening noted without significant canal stenosis. Minor foraminal narrowing noted on the left. L2-L3: Normal disc contour. No facet arthrosis, canal or neural foraminal stenosis. L1-L2: Normal disc contour. No facet arthrosis, canal or neural foraminal stenosis. PARASPINAL/RETROPERITONEAL: The paravertebral soft tissues appear grossly unremarkable. MR/MR lumbar spine wo con IMPRESSION: 1. Disc bulging at L5-S1 with annular fissuring on the right, with bilateral facet arthropathy and moderate bilateral neural foraminal stenosis with impingement on the exiting L5 nerve roots bilaterally. 2. Disc bulging at L4-L5 and right-sided foraminal/extraforaminal disc herniation at this level with mild facet arthrosis, with cypoevbn-un-eqxykz right and moderate left-sided neural foraminal stenosis, with impingement on the L4 nerve roots, right more than left. 3. Marrow edema in the posterior elements of L5, as discussed above and within the left S1 pedicle and L5 spinous process which may reflect stress reactions. Active inflammatory changes at the left L5-S1 facet joint are also suspected. Dictated By: SABINE MARQUIS MD Signed By: <Electronically signed by SABINE MARQUIS MD in OV> 09/15/22 1711 DD/ 1420 TD/TT: Mental Health Specialist: Procedure Note Donotuseinterpreter, Image - 09/15/[address] [address] Magnetic Resonance Report Signed Patient: Zuhair NjMR#: [id number] : 1975Acct:[id number] Age/Sex: 47 / MADM Date: 09/10/22 Loc: HO.MRI Attending Dr: Angelica Martinez MD Ordering Physician: Angelica Martinez Date of Service: 09/10/22 Procedure(s): MR lumbar spine wo con Accession Number(s): [id number] cc: Angelica Martinez EXAMINATION: MR LUMBAR SPINE WITHOUT CONTRAST CLINICAL INFORMATION: 47-year-old with low back pain and 8 years of pain radiating down the right side. COMPARISON: None TECHNIQUE: MRI of the lumbar spine was obtained using routine sequences without contrast. FINDINGS: CORONAL ALIGNMENT: Normal. SAGITTAL ALIGNMENT: Normal. LUMBOSACRAL JUNCTION: Transitional lumbosacral anatomy with lowest lumbar-like segment labeled as S1, which appears partially lumbarized with a transitional S1-S2 intervertebral disc. VERTEBRAL BODIES: Vertebral body heights are well maintained. DISC SPACES AND ENDPLATES: The intervertebral disc space heights are well maintained. Mild degrees of disc desiccation are noted between L2-L3 and L5-S1 inclusive. Mild paravertebral spondylosis at L4-L5 and L5-S1. Tiny Schmorl's node along the inferior endplate of L4 noted. SPINAL CANAL: No abnormal developmental findings. BONE MARROW: Bone marrow edema is noted in the left L5 and S1 pedicles, with subchondral marrow edema on both sides of the left L5-S1 facet joint, likely reactive secondary to facet arthropathy. Cannot exclude stress reactions in the left L5 and S1 pedicles. Minor marrow edema in the right L5 pedicle as well which is nonspecific. There is marrow edema within the L5 transverse process as well which is suggestive of a stress reaction. No suspicious marrow-replacing process. Mild marrow edema noted in the pars interarticularis bilaterally at L5 which could also be reflective of stress reactions. CONUS MEDULLARIS: Terminates at L2. Morphology and signal is normal. INTRADURAL NERVE ROOTS: Within normal limits. L5-S1: Diffuse disc bulging is noted with mild right lateral annular fissuring, with slight flattening of the ventral dural sac. There is moderate left-sided and zopr-sz-tqsyzmlv right-sided facet arthropathy, with bilateral facet joint effusions and probable reactive inflammatory changes at the left facet joint with some adjacent periarticular soft tissue edema and a small synovial cyst along the posterior margin of the left facet joint. No significant spinal canal stenosis. There is moderate bilateral neural foraminal stenosis, with disc bulging abutting the exiting L5 nerve roots bilaterally. L4-L5: Disc bulging is noted with a superimposed right-sided foraminal/extraforaminal disc herniation impinging on the exiting right L4 nerve root. Disc bulging also impinges on the exiting left L4 nerve root. Mild facet arthrosis is noted bilaterally without significant canal stenosis. Qveollgz-yp-ufmpxm right and moderate left-sided neural foraminal stenosis noted. L3-L4: Small extraforaminal/foraminal disc protrusion noted on the left without neural impingement. Mild ligamentum flavum thickening noted without significant canal stenosis. Minor foraminal narrowing noted on the left. L2-L3: Normal disc contour. No facet arthrosis, canal or neural foraminal stenosis. L1-L2: Normal disc contour. No facet arthrosis, canal or neural foraminal stenosis. PARASPINAL/RETROPERITONEAL: The paravertebral soft tissues appear grossly unremarkable. MR/MR lumbar spine wo con IMPRESSION: 1. Disc bulging at L5-S1 with annular fissuring on the right, with bilateral facet arthropathy and moderate bilateral neural foraminal stenosis with impingement on the exiting L5 nerve roots bilaterally. 2. Disc bulging at L4-L5 and right-sided foraminal/extraforaminal disc herniation at this level with mild facet arthrosis, with mivbzceg-dx-bkanen right and moderate left-sided neural foraminal stenosis, with impingement on the L4 nerve roots, right more than left. 3. Marrow edema in the posterior elements of L5, as discussed above and within the left S1 pedicle and L5 spinous process which may reflect stress reactions. Active inflammatory changes at the left L5-S1 facet joint are also suspected. Dictated By: SABINE MARQUIS MD Signed By: <Electronically signed by SABINE MARQUIS MD in OV> 09/15/22 1711 DD/ 1420 TD/TT: Mental Health Specialist: [facility] External Provider IMG MRI PROCEDURES Edited Result - Final documented in this encounter Visit Diagnoses Diagnosis Type 2 diabetes mellitus without complication, with long-term current use of insulin ([facility])- Primary documented in this encounter Care Teams Financial Reporting Accountant Relationship Specialty Start Date End Date Sammi Wolf MD [address] [place] [phone] PCP - General Family Medicine 02/09/20 Paxton Mills FNP [address] [place] [address] Nurse Practitioner Family Medicine 07/13/23 documented as of this encounter
--- OUTSIDE RECORDS SUMMARY | 2025-04-25 10:08 | XMS_ITS | Clinical Summary ---
Author Organization [facility] Address [address] [place] [address] Care Team Providers Care Manager File Name Role Phone Unavailable Primary Care Provider Unavailabl e Source Comments PLEASE NOTE, if this patient is a minor, it may be UNLAWFUL to discuss sensitive information that is contained in these records (such as FAMILY PLANNING, MENTAL HEALTH or SUBSTANCE ABUSE) with the minor patient's parent or other person without the patient's specific authorization.[facility] Allergies No known active allergies Medications metFORMIN XR (GLUCOPHAGE-XR) 500 mg 24 hr tablet Take 1,000 mg by mouth 2 (two) times daily Active JARDIANCE 25 mg tab Take 25 mg by mouth every morning Active atorvastatin (LIPITOR) 40 mg tablet Take 40 mg by mouth nightly at bedtime Active lisinopriL 20 mg tablet Take 20 mg by mouth every morning Active QUEtiapine (SEROQUEL) 300 mg tablet Take 300 mg by mouth nightly at bedtime Active sildenafiL (VIAGRA) 25 mg tablet Take 25 mg by mouth once daily as needed 02/23/2024 Active aspirin 81 mg chewable tablet Chew and swallow 81 mg by mouth once daily Active cyclobenzaprine (FLEXERIL) 5 mg tablet Take 5 mg by mouth 3 (three) times daily as needed for muscle spasms 07/27/2023 Active Active Problems Problem Noted Date Diagnosed Date Housing problems (Z59.9) 05/06/2024 Housing situation unstable (Z59.9) 05/06/2024 Lack of housing (Z59.0) 05/06/2024 Lack of adequate food (Z59.4) 05/06/2024 Lack of access to transportation (Z91.89) 2023 Erectile dysfunction 02/23/2024 Overview (05/06/2024): Last Assessment & Plan: Counseling done I will start him on sildenafil 25mg Chronic bilateral low back pain with bilateral s ciatica 01/01/2023 Right elbow pain 01/01/2023 Overview (05/06/2024): Last Assessment & Plan: Continue to follow with pain management Episodic mood disorder ([facility] V24) 10/06/2022 Overview (05/06/2024): Last Assessment & Plan: Presented with mood swings: Some days down [...] the patient that new provider works with [facility], so calls would be coming from there. He gives verbal permission to share information with new provider. Any issues or concerns, he should contact [facility]. All his questions were answered, and I have wished him well. He agrees with the plan. Assessment & Plan (05/06/2024 9:34 AM EDT): R/o bipolar disorder, mixed. Currently with stable mood and sleep, no hallucinations or paranoia. -pt to reach out to employment case manager for assistance with paperwork, transportation options. -Continue therapy every Thursday, Edward. -Continue seroquel 300 mg qhs, does not need refill. Monitor for worsening metabolic issues with seroquel, check lipids and glucose and AIMS yearly. F/u with pcp re sig weight loss. Lumbar paraspinal muscle spasm 07/28/2022 Overview (05/06/2024): Last Assessment & Plan: Counseled to apply heat to affected area and diclofenac gel bid x 2w Take tylenol 500mg tid x 2w then prn only Refer to PT Recommended acupuncture Order Xray of spine and fu w PCP in 3m He declined Influenza vax today. Hordeolum externum of upper eyelid 07/25/2022 Pain in finger 07/25/2022 Hypertensive disorder 01/30/2017 Overview (05/06/2024): Last Assessment & Plan: - Aerobic exercise to reduce BP. Initial [...] prescriptions without first consulting health care provider Type 2 diabetes mellitus wit hout complication ([facility]) 10/28/2012 Overview (05/06/2024): Last Assessment & Plan: Diabetes is: controlled - Lab Results Component Value Date HGBA1C 5.6 02/23/2024 HGBA1C 5.7 11/25/2023 HGBA1C 6.1 (A) 01/01/2023 - Lab Results Component Value Date MICROALBUR 52.3 08/21/2021 CREATININE 0.83 02/23/2024 -Changes: none - Diabetic eye exam:up to date - Diabetic foot exam:pending - Continue lifestyle modifications - Continue current medications - Follow up: 3 months Family History Medical History Relation Name Comments Alcohol/Drug Abuse Brother Schizophrenia Brother Dementia Father Relation Name Status Comments Brother Father Mother Alive Sister Alive Social History Tobacco Use Types Packs/Day Years Used Date Smoking Tobacco: Every Day Cigarettes Tobacco Cessation:Ready to Q uit: No; Counseling Given: Yes Comments:Has had periods without tobacco xs 2 years; not ready to quit now Alcohol Use Standard Drinks/Week Comments Yes 10 (1 standard drink = 0.6 oz pu re alcohol) 2 xs weekly, socially prn Social Connections Answer Date Recorded Connectedness 0 05/06/2024 Financial Resource Strain Answer Date R ecorded Financial Resource Strain 0 2023 Stress Answer Date Recorded Stress 0 04/05/2024 Physical Activity Answer Date Recorded Physical Activity 0 04/05/2024 Food Insecurity Answer Date Recorded Within the past 12 months, t he food you bought just didn't last and you didn't have enough money to get more. 2 05/06/20 24 Transportation Needs Answer Date Record ed In the past 12 months, has l ack of transportation kept you from medical appointments, meetings, work or from getting things needed for daily living? (Check all that apply) 2 2023 Housing Stability Answer Date Recorded What is your housing situation today? 2 05/06/2024 Safety and Environment Answer Date Renny rded Safety 0 04/05/2024 Utilities Answer Date Recorded In the past 12 months has th e electric, gas, oil, or water company threatened to shut off services in your home? 2 05/06/2024 Employment Answer Date Recorded Stress 0 05/06/2024 Sex and Gender Information Value Date Recorded Sex Assigned at Male 04/04/2024 7:04 AM PDT Legal Sex Male 7:04 AM PDT Gender Identity Choose not to disclose 7:04 AM PDT Sexual Orientation Not on file Plan of Treatment Health Maintenance Due Date Last Done Comments Anxiety Screening 1976 Diabetes Foot Exam 1976 Urine Albumin Creatinine Rat io Screening 1976 Retinopathy Screening 1989 Relationship Safety Screening/Counseling 1991 Imm-Hepatitis B (1 of 3 - 19 + 3-dose series) 1995 Imm-Pneumococcal (2 of 2 - PCV) 09/02/[address] Colonography 2021 Colonoscopy 2021 Flexible Sigmoidoscopy 2021 [id number] ( season) 2024 08/21/2021, 01/23/2021, 01/01/2021 Alcohol and Drug Screen 08/24/2024 Depression Annual Screen 08/24/2024 Hemoglobin A1c 08/25/2024 02/23/2024, 07/0 09/2023, 08/21/2021 FIT/gFOBT 12/23/2024 12/24/2023 Lipid Screening 02/22/2025 02/23/2024 Serum Creatinine 02/22/2025 02/23/2024 Imm-Influenza (#1) 2025 08/21/2021, 07/12/2010 Tobacco Cessation Counseling (#1) 05/06/2025 Colorectal Cancer Screening 12/23/2026 Fecal DNA 12/23/2026 12/24/2023 Imm-DTaP/Tdap/Td (2 - Td or Tdap) 08/21/2031 021, 06/24/2003 HIV Screening Completed 02/23/2024, 02/23/2024 Hepatitis C Screening Completed 02/23/2024 Insurance [place] MEDICAID [facility]
--- OUTSIDE RECORDS SUMMARY | 2025-04-25 10:08 | XMS_ITS | Encounter Summary ---
Author Organization [employer] Address [address] [place] [address] [address] [place] [address] Care Team Providers Care Destination Specialist Name Role Phone Sammi Wolf MD Primary Care Provide r [place] Unavailable Unavailable Reason for Visit * Reason Comments Med Refill Encounter Details Date Type Department Care Team (Late st Contact Info) Description 11/27/2023 Refill [facility] [address] [place] [address] Pa[place] Mills FNP Social History Tobacco Use Types Packs/Day Years Used Date Smoking Tobacco: Every Day Cigarettes Passive Smoke Exposure: Current Smokeless Tobacco: Never Alcohol Use Standard Drinks/Week Comments Yes 0 (1 standard drink = 0.6 oz pur e alcohol) Socially Depression Answer Date Recorded Patient Health Questionnaire-9 Score 13 11/17/2023 Patient Health Questionnaire-9 Score 13 11/17/2023 Last PHQ-9: Questionnaire Data Not on file 0 11/17/2023 Housing Stability Answer Date Recorded What is your housing situation today? I do not have housing (Staying with others, in a hotel, in a detention, living outside on the street, on a beach, in a car, or in a park 06/04/[address] you li ve. Do you have problems with any of the following? None of the above 06/04/2023 Food Insecurity Answer Date Recorded Within the past 12 months, y ou worried that your food would run out before you got money to buy more: Sometimes True 2022 Within the past 12 months,th e food you bought just didn't last and you didn't have enough money to get more: Sometimes True 06/09/2023 Transportation Answer Date Recorded In the past 12 months, has l ack of transportation kept you from medical appts, meetings, work or from getting things needed for daily living? Yes, it has kept me from medical appointments or getting medications. 06/04/2023 Utilities Answer Date Recorded In the past 12 months, has t he electric, gas, oil or water company threatened to shut off services in your home? No 06/09/2023 Depression Answer Date Recorded Patient Health Questionnaire-2 Score 4 11/17/2023 Sex and Gender Information Value Date Recorded [...] Description 05/23/2025 10:45 AM EDT Office Visit [facility] [address] [place] [address] Sammi Wolf MD [address] [place] [id number] 07/18/2025 10:00 AM EST Office Visit [facility] [address] [place] [address] TarmendelKaren, OD [address] [place] [address] documented as of this encounter Visit Diagnoses Not on filedocumented in this encounter Additional Health Concerns Assessment Noted Time PHQ-9 Depression Total Score: 13 024 9:43 AM EDT documented as of this encounter Care Teams Destination Specialist Relationship Specialty Start Date End Date Sammi Wolf MD [address] [place] [id number] PCP - General Family Medicine 02/09/20 Pa[place] Mills FNP [address] [place] [id number] Nurse Practitioner Family Medicine 07/13/23 documented as of this encounter
== END 2025-04-25 09:37 | disposition home or self-care (01) ==
LOC: HO.HGS 09:15
PROVIDERS: PCP Internal Medicine; Visit Provider Surgery
DX: S70.11XA Contusion of right thigh, initial encounter (principal)
CPT/HCPCS: 99204

== ENCOUNTER → 2025-04-25 09:14 | Outpatient (BNVA) | payer MEDICAID, SELFPAY | PROVIDERS: PCP Internal Medicine; Visit Provider Surgery | DX: S70.11XA Contusion of right thigh, initial encounter (principal) | CPT/HCPCS: 99202 ==